=== PATIENT | male | born 1955 ===

== ENCOUNTER 2019-03-16 10:05 | Outpatient (CLI) | payer OTHER ==
[~2019-03-16] VITALS: Ht 170.2 cm; Wt 76.2 kg
[2019-03-16] MEDS ORDERED: CLARITIN10 MG PO (11:53)
[2019-03-16] MEDS ORDERED: ZANTAC300 MG PO (11:53)
[2019-03-16] MEDS ORDERED: FLONASE16 GM NASAL (11:53)
== END 2019-03-16 10:20 | disposition home or self-care (01) ==
LOC: OFIC 805 10:05
DX: R05 Cough (principal); J31.0 Chronic rhinitis; J37.0 Chronic laryngitis